=== PATIENT | male | born 1965 | race Two or more races ===

== ENCOUNTER 2020-07-06 07:03 | Outpatient (CLI) | payer OTHER ==
[2020-07-10] MEDS ORDERED: TOPROL XL50 M1 PO (17:06)
[2020-07-10] MEDS ORDERED: AMLODIPINE BESYL5 MG PO (17:07)
[2020-07-10] MEDS ORDERED: FENOFIBRA PO (17:08)
[2020-07-10] MEDS ORDERED: LIPITO PO (17:08)
[2020-07-10] MEDS ORDERED: LEVOTHYROXINE25 MCG PO (17:08)
[2020-07-10] MEDS ORDERED: CHILDREN'S ASPI81 MG PO (17:09)
== END 2020-07-06 07:10 | disposition home or self-care (01) ==
LOC: LAB 07:03
PROVIDERS: ATTEND Orthopaedic Surgery
DX: D64.89 Other specified anemias (principal); E88.89 Other specified metabolic disorders; D68.8 Other specified coagulation defects; N39.0 Urinary tract infection, site not specified; Z22.322 Carrier or suspected carrier of Methicillin resistant Staphylococcus aureus; Z76.89 Persons encountering health services in other specified circumstances

== ENCOUNTER → 2020-07-10 08:00 | Outpatient (CLI) | payer OTHER ==
[~2020-07-10] VITALS: Ht 175.3 cm; Wt 97.5 kg
[~2020-07-10 08:00] MED LIST: AMLODIPINE BESYL5 MG PO; CHILDREN'S ASPI81 MG PO; FENOFIBRA PO; LEVOTHYROXINE25 MCG PO; LIPITO PO; TOPROL XL50 M1 PO
== END | disposition home or self-care (01) ==
LOC: LAB 08:00 → EDUNIT# 11:30 → EDSTATUS 07-17 11:30 → SURH 07-17 11:30
PROVIDERS: ATTEND Orthopaedic Surgery
DX: Z03.818 Encounter for observation for suspected exposure to other biological agents ruled out (principal); Z20.828 Contact with and (suspected) exposure to other viral communicable diseases; I10 Essential (primary) hypertension; S72.321 Displaced transverse fracture of shaft of right femur; I49.8 Other specified cardiac arrhythmias

== ENCOUNTER 2024-05-30 14:18 | Outpatient (CLI) | payer OTHER | END 2024-05-30 14:39 | disposition home or self-care (01) | LOC: TOM 14:18 | PROVIDERS: ATTEND Orthopaedic Surgery | DX: M24.7 Protrusio acetabuli (principal) ==